=== PATIENT | male | born 1960 | race Caucasian/White ===

== ENCOUNTER 2018-10-23 13:59 | Emergency (ER) | payer BC ==
[2018-10-23 14:13] VITALS: BP 124/71
--- NOTE | 2018-10-23 14:17 | ED Physician Documentation ---
PD HPI CHEST PAIN - Stated complaint Stated Complaint: IRREGULAR HB - Chief complaint Chief Complaint: Cardiac - History obtained from History obtained from: Patient - History of Present Illness Timing - onset: How many days ago (few) Timing - onset during: Rest Timing - duration: Days (few) Timing - details: Intermittant Quality: Other (intermittent skips). No: Pressure, Tightness Location: Substernal Radiation: No: Jaw, Neck Improved by: No: Rest (mainly noted them when he was resting; none with exertion.) Worsened by: No: Exertion, Inspiration Associated symptoms: Palpitations. No: Shortness of air, Nausea, Vomiting, Feeling faint / dizzy Similar symptoms before: No diagnosis (has had occasional skips in the past, but noted more frequent last night and some this morning.) Recently seen: Not recently seen Review of Systems Constitutional: denies: Fever, Chills Nose: denies: Rhinorrhea / runny nose, Congestion Throat: denies: Sore throat Cardiac: reports: Palpitations. denies: Chest pain / pressure, Pedal edema, Calf pain Respiratory: denies: Dyspnea, Cough GI: denies: Abdominal Pain, Nausea, Vomiting, Diarrhea Neurologic: denies: Generalized weakness, Focal weakness, Numbness, Near syncope PD PAST MEDICAL HISTORY - Past Medical History Cardiovascular: None Respiratory: None Neuro: None Endocrine/Autoimmune: None GI: None - Allergies Allergies/Adverse Reactions: Allergies Allergy/AdvReac Type Severity Reaction Status Date / Time No Known Drug Allergies Allergy Verified 10/23/18 14:13 - Social History Does the pt drink ETOH?: No Does the pt have substance abuse?: No PD ED PE NORMAL - Vitals Vital signs reviewed: Yes - General General: Alert and oriented X 3, No acute distress, Well developed/nourished - HEENT HEENT: Pharynx benign - Neck Neck: Supple, no meningeal sign, No adenopathy, Thyroid normal - Cardiac Cardiac: RRR, No murmur - Respiratory Respiratory: Clear bilaterally - Abdomen Abdomen: Soft, Non tender - Derm Derm: Normal color, Warm and dry - Extremities Extremities: No tenderness to palpate, No edema, No calf tenderness / cord - Neuro Neuro: Alert and oriented X 3, No motor deficit, Normal speech Results - Vitals Vitals: Oxygen O2 Source Room air - EKG (time done) 14:14 Rate: Rate (enter#) (79) Rhythm: NSR [place]: Normal Intervals: Normal [place] QRS: Normal Ischemia: Normal ST segments. No: ST elevation c/w ischemia, ST depression - Labs Labs: Laboratory Tests 10/23/18 10/23/18 10/23/18 14:32 14:32 14:32 WBC 5.1 RBC 5.32 Hgb 15.2 Hct 47.0 MCV 88.3 MCH 28.6 MCHC 32.3 RDW 16.2 H Plt Count 163 MPV 9.0 Neut # (Auto) 3.3 Lymph # (Auto) 1.2 L Ogle # (Auto) 0.4 Eos # (Auto) 0.1 Baso # (Auto) 0.0 Absolute Nucleated RBC 0.00 Nucleated RBC % 0.0 Sodium 141 Potassium 3.9 Chloride 109 Carbon Dioxide 22 Anion Gap 10.0 BUN 13 Creatinine 1.4 H Estimated GFR (MDRD) 52 L Glucose 116 H Calcium 9.2 Magnesium 2.1 Total Bilirubin 0.7 AST 31 ALT 33 Alkaline Phosphatase 58 B-Natriuretic Peptide < 5 L Total Protein 7.0 Albumin 4.1 Globulin 2.9 Albumin/Globulin Ratio 1.4 Lipase 34 TSH 10/23/18 14:32 WBC RBC Hgb Hct MCV MCH MCHC RDW Plt Count MPV Neut # (Auto) Lymph # (Auto) Ogle # (Auto) Eos # (Auto) Baso # (Auto) Absolute Nucleated RBC Nucleated RBC % Sodium Potassium Chloride Carbon Dioxide Anion Gap BUN Creatinine Estimated GFR (MDRD) Glucose Calcium Magnesium Total Bilirubin AST ALT Alkaline Phosphatase B-Natriuretic Peptide Total Protein Albumin Globulin Albumin/Globulin Ratio Lipase TSH 2.82 PD MEDICAL DECISION MAKING - ED course Complexity details: considered differential (sounds like benign palpitations. Will check ECG and electrolytes. ), d/w patient Departure - Departure Disposition: Home, Self Care Clinical Impression: Heart palpitations Condition: Stable Record reviewed to determine appropriate education?: Yes Instructions: ED Palpitations Follow-Up: Jesús Boone MD [Primary Care Provider] - Comments: Palpitations are typically benign. Your basic blood tests appear normal with good electrolytes. Stay well-hydrated as you normally do. Follow-up with your primary care if they continue into the next week. They can set you up with a Holter monitor or ultrasound of the heart if there is more concerned. At this point no signs of heart failure per se. Your EKG was a normal. Normal activity. Discharge Date/Time: 10/23/18 17:21
[2018-10-23 14:44] LABS: BASOPHILS % (AUTO) 0.8 %; EOSINOPHILS # (AUTO) 0.1 10^3/uL (0.0-0.7); EOSINOPHILS % (AUTO) 2.7 %; HGB - HEMOGLOBIN 15.2 g/dL (14.0-18.0); LYMPHOCYTES # (AUTO) 1.2 10^3/uL (1.5-3.5); LYMPHOCYTES % (AUTO) 23.4 %; MEAN CORPUSCULAR HEMOGLOBIN 28.6 pg (27.0-31.0); MEAN CORPUSCULAR HGB CONC 32.3 g/dL (32.0-36.0); MEAN CORPUSCULAR VOLUME 88.3 fL (80.0-94.0); MONOCYTES # (AUTO) 0.4 10^3/uL (0.0-1.0); MONOCYTES % (AUTO) 8.6 %; NEUTROPHILS # (AUTO) 3.3 10^3/uL (1.5-6.6); NEUTROPHILS % (AUTO) 64.3 %; PLT - PLATELET COUNT 163 10^3/uL (130-450); RED BLOOD COUNT 5.32 10^6/uL (4.70-6.10); RED CELL DISTRIBUTION WIDTH 16.2 % (12.0-15.0); WHITE BLOOD COUNT 5.1 x10^3/uL (4.8-10.8)
[2018-10-23 14:59] LABS: ALBUMIN 4.1 g/dL (3.2-5.5); ALBUMIN/GLOBULIN RATIO 1.4 (1.0-2.2); BILIRUBIN,TOTAL 0.7 mg/dL (0.2-1.0); CALCIUM 9.2 mg/dL (8.5-10.3); CREATININE 1.4 mg/dL (0.6-1.2); MAGNESIUM 2.1 mg/dL (1.7-2.8)
== END 2018-10-23 17:21 | disposition home or self-care (01) ==
LOC: ED 13:59
DX: R00.2 Palpitations (principal)
CPT/HCPCS: 36415; 80053; 83690; 83735; 83880; 84443; 85025; 93005; 99283

== ENCOUNTER 2019-10-15 15:43 | Outpatient (CLI) | payer BC | END 2019-10-15 15:44 | disposition home or self-care (01) | LOC: COV 15:43 | PROVIDERS: ATTEND Family Medicine | DX: R05 Cough (principal); R09.81 Nasal congestion; Z20.828 Contact with and (suspected) exposure to other viral communicable diseases ==